=== PATIENT | female | born 1935 | race Caucasian/White ===

== ENCOUNTER 2017-12-23 05:02 | Outpatient (CLI) | payer MEDICARE, OTHER | END 2017-12-23 05:03 | disposition critical access hospital (66) | LOC: EMS 05:02 | PROVIDERS: ATTEND Surgery | DX: R79.81 Abnormal blood-gas level (principal) | CPT/HCPCS: A0425; A0429 ==

== ENCOUNTER 2017-12-23 05:18 | Inpatient (IN) | payer MEDICARE, OTHER ==
--- NOTE | 2017-12-23 05:53 | XRAY Preliminary Report ---
Exam: XR CHEST 1 VIEW X-RAY IMPRESSION: Right lung base pneumonia. Posttreatment chest suggested to ensure clearance. [facility] SITE ID: [id number]
--- NOTE | 2017-12-23 05:55 | XRAY Report ---
EXAM: CHEST RADIOGRAPHY EXAM DATE: 12/23/2017 05:31 AM. CLINICAL HISTORY: Hypoxic. COMPARISON: None. TECHNIQUE: 1 view. FINDINGS: Lungs/Pleura: Small to moderate right lung base opacity. Left lung clear. No gross pneumothorax or la rge effusion. Mediastinum: Borderline heart size. No mediastinal shift. Other: None. IMPRESSION: Right lung base pneumonia. Posttreatment chest suggested to ensure clearance. [facility] Referring Provider Line: [phone] SITE ID: [id number]
[2017-12-23] MEDS ORDERED: levoFLOXacin 250 MG TABLET PO STA (05:58)
--- NOTE | 2017-12-23 06:01 | ED Physician Documentation ---
PD HPI DYSPNEA - Stated complaint Stated Complaint: SOA - Chief complaint Chief Complaint: Resp - History obtained from History obtained from: EMS - History of Present Illness Timing - onset: Today Timing - details: Abrupt onset, Now resolved Associated symptoms: Cough Similar symptoms before: Has not had sx before Recently seen: Not recently seen - Additional information Additional information: Patient is an 82 year old female sent in from the memory care unit for hypoxia. Staff states that the patient had had a cough and been congested. Staff states that when they went to check on her, her oxygenation was 79%. The called ems. When ems arrived they changed the pulse ox and patient was 92-94 percent on room air. Upon initial evaluation in the emergency department patient was awake and alert and denied any complaints. Patient was found to be 96 percent on room air when she was awake. Review of Systems Unable to obtain: Dementia PD PAST MEDICAL HISTORY - Past Medical History Cardiovascular: Hypertension Respiratory: None Neuro: Dementia Endocrine/Autoimmune: Type 2 diabetes, HyPOthyroidism Psych: Depression Other Past Medical History: Demenia - Past Surgical History Past Surgical History: Yes - Present Medications Home Medications: Ambulatory Orders Medication Instructions Recorded Confirmed Levothyroxine [Synthroid] 50 mcg PO DAILY 07/30/13 07/30/13 Provastatin 40 mg PO HS 07/30/13 07/30/13 Cholecalciferol (Vitamin D3) 1 tab PO DAILY 12/23/17 [Vitamin D3] Donepezil HCl [Donepezil HCl] 1 tab PO QPM 12/23/17 LORazepam [Lorazepam] 1 mg PO QPM 12/23/17 QUEtiapine [SEROquel] 12.5 mg PO BID 12/23/17 glipiZIDE [Glipizide] 2.5 mg PO DAILY 12/23/17 - Allergies Allergies/Adverse Reactions: Allergies Allergy/AdvReac Type Severity Reaction Status Date / Time Penicillins Allergy Unknown unknown Verified 12/23/17 05:24 - Social History Does the pt smoke?: No Smoking Status: Never smoker Does the pt drink ETOH?: No Does the pt have substance abuse?: No - POLST Patient has POLST: No PD ED PE NORMAL - Vitals Vital signs reviewed: Yes - General General: No acute distress - HEENT HEENT: Atraumatic, PERRL - Neck Neck: Supple, no meningeal sign - Abdomen Abdomen: Soft, Non distended - Derm Derm: Normal color, Warm and dry - Extremities Extremities: No deformity, Normal ROM s pain, No edema - Neuro Neuro: No motor deficit, Normal speech Eye Opening: Spontaneous PD ED PE EXPANDED - Cardiac Cardiac: Murmur Present - Respiratory Respiratory: Decreased breath sounds, Right lower lobe. No: Distress, Labored, Stridor, Accessory mm use - Neuro Neuro: Confused Results - Vitals Vitals: Vital Signs - 24 hr 12/23/17 12/23/17 05:18 05:29 Temperature 36.9 C Heart Rate 88 88 Respiratory 20 Rate Blood Pressure 127/64 O2 Saturation 96 94 Oxygen O2 Source Room air - Labs Labs: Laboratory Tests 12/23/17 12/23/17 06:00 06:00 WBC 4.5 L RBC 4.06 L Hgb 12.5 Hct 38.3 MCV 94.4 MCH 30.9 MCHC 32.7 RDW 13.3 Plt Count 159 MPV 8.4 Sodium 141 Potassium 3.7 Chloride 110 Carbon Dioxide 22 Anion Gap 9.0 BUN 46 H Creatinine 1.9 H Estimated GFR (MDRD) 25 L Glucose 124 H Calcium 8.8 Total Bilirubin 0.4 AST 26 ALT 19 Alkaline Phosphatase 79 Total Protein 7.0 Albumin 3.7 Globulin 3.3 Albumin/Globulin Ratio 1.1 Lipase < 10 L - Rads (name of study) chest x-ray Radiology: Final report received (right lower lobe pneumonia) PD MEDICAL DECISION MAKING - ED course Complexity details: reviewed old records, reviewed results, re-evaluated patient , considered differential ED course: Patient was seen and examined at bedside. Patient was well appearing and in no distress. patient's vital signs were within normal limits. Patient was not hypoxic on room air. chest x-ray was performed and labs were drawn. patient was found to have a right lower lobe pneumonia and treated with levaquin 750mg PO. Patient had a port score of 114 and required inpatient admission. Case was discussed with the hospitalist and patient was admitted for further evaluation. Departure - Departure Disposition: 66 [facility] DC/Xfer Clinical Impression: Pneumonia Condition: Stable
[2017-12-23 06:09] LABS: BASOPHILS % (AUTO) 0.2 %; HGB - HEMOGLOBIN 12.5 g/dL (12.0-16.0); MEAN CORPUSCULAR HEMOGLOBIN 30.9 pg (27.0-31.0); MEAN CORPUSCULAR HGB CONC 32.7 g/dL (32.0-36.0); MEAN CORPUSCULAR VOLUME 94.4 fL (81.0-99.0); MEAN PLATELET VOLUME 8.4 fL (7.9-10.8); MONOCYTES % (AUTO) 13.5 %; NEUTROPHILS % (AUTO) 81.3 %; PLT - PLATELET COUNT 159 10^3/uL (130-450); RED BLOOD COUNT 4.06 10^6/uL (4.20-5.40); RED CELL DISTRIBUTION WIDTH 13.3 % (12.0-15.0); WHITE BLOOD COUNT 4.5 x10^3/uL (4.8-10.8)
[2017-12-23 06:18] LABS: ABNORMAL LYMPHS % (MANUAL) 0 %
[2017-12-23 06:34] LABS: ALBUMIN 3.7 g/dL (3.2-5.5); ALBUMIN/GLOBULIN RATIO 1.1 (1.0-2.2); ALKALINE PHOSPHATASE 79 IU/L (42-121); ALT ALANINE AMINOTRANSFERASE 19 IU/L (10-60); AST ASPARTATE AMINOTRANSFERASE 26 IU/L (10-42); BILIRUBIN,TOTAL 0.4 mg/dL (0.2-1.0); BUN - BLOOD UREA NITROGEN 46 mg/dL (6-20); CALCIUM 8.8 mg/dL (8.5-10.3); CARBON DIOXIDE - CO2 22 mmol/L (21-32); CHLORIDE 110 mmol/L (101-111); CREATININE 1.9 mg/dL (0.4-1.0); GFR - MDRD 25 (>89); GLUCOSE 124 mg/dL (70-100); SODIUM 141 mmol/L (135-145)
[2017-12-23 06:39] LABS: LIPASE < 10 U/L (22-51)
[2017-12-23] MEDS ORDERED: ONDANSETRON ODT 4 MG TABLET TL PRN (07:17)
[2017-12-23] MEDS ORDERED: PROCHLORPERAZINE 10 MG/2 ML VIAL IVP PRN (07:17)
[2017-12-23] MEDS ORDERED: oxyCODONE 5 MG TABLET PO PRN (07:17)
[2017-12-23] MEDS ORDERED: ACETAMINOPHEN 325 MG TABLET PO PRN (07:17)
[2017-12-23] MEDS ORDERED: SODIUM CHLORIDE FLUSH 0.9% 10 ML SYRINGE IVP PRN (07:17)
[2017-12-23 07:19] LABS: BAND NEUTROPHILS % (MANUAL) 37 %; LYMPHOCYTES # (MANUAL) 0.3 10^3/uL (1.5-3.5); LYMPHOCYTES % (MANUAL) 6 %; METAMYELOCYTES % (MANUAL) 7 %; MONOCYTES # (MANUAL) 0.5 10^3/uL (0.0-1.0); NEUTROPHILS # (MANUAL) 3.4 10^3/uL (1.5-6.6); NEUTROPHILS % (MANUAL) 38 %; PLATELET ESTIMATE, MANUAL NORMAL (130-450,000) (NORMAL); PLATELET MORPHOLOGY 1+ LARGE PLATELETS (NORMAL); RBC MORPHOLOGY (MULTIPLE) NORMAL APPEARANCE (NORMAL)
[2017-12-23 07:20] LABS: DIFFERENTIAL COMMENT MANUAL DIFFERENTIAL
[2017-12-23] MEDS ORDERED: NYSTATIN POWDER 15 GM TOP PRN (11:48)
[2017-12-23] MEDS ORDERED: LORazepam 0.5 MG TABLET PO PRN (11:48)
[2017-12-23] MEDS ORDERED: CALCIUM CARBONATE CHEW 500 MG TABLET PO PRN (11:48)
--- NOTE | 2017-12-23 12:59 | HISTORY & PHYSICAL EXAMINATION ---
Chief Complaint - Chief Complaint Chief Complaint: Cough History of Present Illness - Admitted From Admitted From:: Emergency department - History Obtained From Records Reviewed: Yes History obtained from: Patient's and medical records Exam Limitations: Patient unable to provide reliable history secondary to dementia - History of Present Illness HPI Comment/Other: Patient is an 82-year-old female with a past medical history significant for moderate dementia, knt-zvobpxd-ghovgufbg diabetes, chronic kidney disease stage IV, hypothyroidism, hyperlipidemia, osteoarthritis and history of parotid gland tumor who presents to the emergency department with chief complaint of cough. The patient is a resident of [facility] dementia unit and has been living there for the past 4-1/2 years. Yesterday evening the staff at [facility] noticed that the patient was having bouts of coughing and appeared to be congested. They checked her oxygen saturation and noted it to be 79% on room air. At that point EMS was called to the [place]. The patient herself cannot recall the incident but does admit to coughing and denies any shortness of air. She also denies any fevers or chills but again she is not a reliable historian secondary to her dementia. The patient's states that he last saw the patient 1 day prior and states at that time she seemed to be in her normal state of health and he did not notice her having any coughing or weakness. The patient denies any chest pain, nausea, vomiting, abdominal pain, diarrhea, urinary frequency, urinary urgency, dysuria, joint pains, muscle aches, joint swelling, lower extremity swelling, back pain, neck stiffness, recent unintentional weight loss, changes in her appetite, headache, blurred vision, runny nose, sore throat, or any focal neurologic deficits. On presentation to the emergency department the patient was found to be afebrile , normotensive, slightly tachypneic but saturating well on room air. The patient underwent routine lab work which did reveal a leukopenia with a WBC of 4.5 and bandemia with 37% bands. The patient's creatinine was elevated at 1.9 which is not significantly elevated from her baseline. The patient was an elderly, frail looking female. She underwent a chest x-ray which revealed right lung base pneumonia. Given the patient's age and comorbidities it was felt that the patient would be best off being treated for her pneumonia in the hospital setting. [facility] 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 She is originally from [place], [place]. Her was her high school sweetheart and they have been for 65 years. They had 4 children together her eldest daughter has . The patient and her moved to [facility] in 1987 after living in [place], [place] for many years. The patient is a former smoker she smoked for 32 years she smoked just under a pack a day. She does not drink alcohol and denies any illicit drug use. - POLST Patient has POLST: No POLST Status: Full Code Meds/Allgy - Home Medications Home Medications: Ambulatory Orders Medication Instructions Recorded Confirmed Acetaminophen [Tylenol] 650 mg PO BID 12/23/17 12/23/17 Acetaminophen [Tylenol] 650 mg PO Q6H PRN 12/23/17 12/23/17 Calcium Carbonate [Tums (Calcium 500 mg PO Q4H PRN 12/23/17 12/23/17 Carbonate 500mg)] Cholecalciferol (Vitamin D3) 2,000 unit PO DAILY 12/23/17 12/23/17 [Vitamin D3] Donepezil HCl [Donepezil HCl] 5 mg PO QPM 12/23/17 12/23/17 LORazepam [Lorazepam] 1 mg PO DAILY PRN 12/23/17 12/23/17 LORazepam [Lorazepam] 1 mg PO QPM 12/23/17 12/23/17 Levothyroxine Sodium 50 mcg PO CAMERONUWETHLILIANE@0700 12/23/17 12/23/17 [Levothyroxine Sodium] Levothyroxine Sodium 100 mcg PO MO@0700 12/23/17 12/23/17 [Levothyroxine Sodium] Nystatin [Nystop] 1 applic TOP .BID-TID PRN 12/23/17 12/23/17 Pravastatin [Pravachol] 40 mg PO QPM 12/23/17 12/23/17 QUEtiapine [SEROquel] 12.5 mg PO BID 12/23/17 12/23/17 glipiZIDE [Glipizide] 2.5 mg PO DAILYWM 12/23/17 12/23/17 - Allergies Allergies/Adverse Reactions: Allergies Allergy/AdvReac Type Severity Reaction Status Date / Time Penicillins Allergy Unknown unknown Verified 12/23/17 05:24 Review of Systems - Other Findings Other Findings: A comprehensive review of systems was performed the pertinent positives and negatives are stated above in the HPI and the remainder of the review of systems is negative. Exam - Vital Signs Reviewed Vital Signs: Yes Vital Signs: Vital Signs x48h Temp Pulse Pulse Resp BP BP Pulse Ox 12/23/17 08:50 37.3 C 85 24 130/62 98 12/23/17 08:23 74 22 112/74 95 - Physical Exam General Appearance: positive: No acute distress, Other (Demented, pleasant) Eyes Bilateral: positive: Normal inspection, PERRL, EOMI, No lid inflammation, Conjunctivae nml, No scleral icterus ENT: positive: ENT inspection nml, Pharynx nml, Dry mucous membranes. negative : Purulent nasal drainage, Pharyngeal erythema, Oral lesions Neck: positive: Nml inspection, Thyroid nml, No JVD, Trachea midline. negative : Thyromegaly, Lymphadenopathy (R), Lymphadenopathy (L), Stiff neck, Carotid bruit, Tracheal deviation Respiratory: positive: Chest non-tender, Rhonchi (right base). negative: Wheezes, Rales Cardiovascular: positive: Regular rate & rhythm, No murmur, No gallop Peripheral Pulses: positive: 2+ Abdomen: positive: Non-tender, No organomegaly, Nml bowel sounds, No distention. negative: Guarding, Rebound, Hepatomegaly Back: positive: Nml inspection. negative: CVA tenderness (R), CVA tenderness (L ) Skin: positive: Color nml, No rash, Warm. negative: Diaphoresis, Pallor, Skin rash Extremities: positive: Non-tender, Full ROM, Nml appearance, No pedal edema Neurologic/Psychiatric: positive: CN's nml (2-12), Motor nml, Sensation nml, Disoriented to place, Disoriented to time Conclusion/Plan - Problem List (1) HCAP (healthcare-associated pneumonia) Conclusion/Plan: Patient presented from [facility] with cough and reported oxygen saturation of 79%. On presentation patient's oxygen saturation was within normal limits however she was slightly tachypneic and coughing. Patient's chest x-ray revealed a right lung base pneumonia. The patient had leukopenia with WBC of 4.5 and 37% bandemia. The patient's pneumonia severity index score secondary to her age and other risk factors was 94 at which score it is recommended that the patient be treated with IV antibiotics in the hospital. Patient was admitted to [facility] for treatment of healthcare associated pneumonia given that she is coming from a [place] [facility]. Plan: Start IV cefepime and Levaquin for treatment of healthcare associated pneumonia Supplemental oxygen as needed Monitor WBC and vital signs closely Patient will likely need 2 days of IV antibiotics before discharge back to home place. (2) Diabetes Conclusion/Plan: Patient on glipizide at home Will hold glipizide while hospitalized Place on SS insulin while hospitalized Check HbA1C Blood glucose check ACHS Qualifiers: Diabetes mellitus type: type 2 Diabetes mellitus complication status: with kidney complications Diabetes mellitus complication detail: with chronic kidney disease Diabetes mellitus manager terminal insulin use: without group home use Chronic kidney disease stage: stage 4 (severe) Qualified Code(s): E11.22 - Type 2 diabetes mellitus with diabetic chronic kidney disease; N18.4 - Chronic kidney disease, stage 4 (severe); N18.4 - Chronic kidney disease, stage 4 ( severe); N18.4 - Chronic kidney disease, stage 4 (severe); N18.4 - Chronic kidney disease, stage 4 (severe) (3) Hypothyroidism Conclusion/Plan: Patient has history of hypothyroidism and is on levothyroxine at home we will continue her on her home dose of levothyroxine. We will check a TSH. Stable Qualifiers: Hypothyroidism type: unspecified Qualified Code(s): E03.9 - Hypothyroidism , unspecified (4) Hyperlipidemia Conclusion/Plan: Patient takes Pravachol at home we will continue her on statin while she is hospitalized Stable Qualifiers: Hyperlipidemia type: unspecified Qualified Code(s): E78.5 - Hyperlipidemia , unspecified (5) Dementia Conclusion/Plan: Patient has moderate to severe dementia and resides in a dementia unit at home place. Patient is on donepezil, Seroquel and lorazepam at home and these medications will be continued while she is hospitalized Patient is pleasantly demented however given that she is going to be in a new environment there is high risk for delirium and sundowning. Patient will need frequent orientation and will need to ensure that there is blunting of light during the day and she is not bothered too much at night. 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 Avoid nephrotoxic agents Likely secondary to diabetes (7) Prophylactic use of low molecular weight heparin for venous thromboembolism Conclusion/Plan: Patient will be placed on Lovenox for DVT prophylaxis - Lab Results Lab results reviewed: Yes Fish Bones: 12/23/17 06:00 12/23/17 06:00 Other Lab Results: Laboratory Results WBC 4.5 x10^3/uL (4.8-10.8) L 12/23/17 06:00 RBC 4.06 10^6/uL (4.20-5.40) L 12/23/17 06:00 Hgb 12.5 g/dL (12.0-16.0) 12/23/17 06:00 Hct 38.3 % (37.0-47.0) 12/23/17 06:00 MCV 94.4 fL (81.0-99.0) 12/23/17 06:00 MCH 30.9 pg (27.0-31.0) 12/23/17 06:00 MCHC 32.7 g/dL (32.0-36.0) 12/23/17 06:00 RDW 13.3 % (12.0-15.0) 12/23/17 06:00 Plt Count 159 10^3/uL (130-450) 12/23/17 06:00 MPV 8.4 fL (7.9-10.8) 12/23/17 06:00 Neut # Not Reportable 12/23/17 06:00 Lymph # Not Reportable 12/23/17 06:00 [place] # Not Reportable 12/23/17 06:00 Eos # Not Reportable 12/23/17 06:00 Baso # Not Reportable 12/23/17 06:00 Absolute Nucleated RBC Not Reportable 12/23/17 06:00 Total Counted 100 12/23/17 06:00 Band Neuts % (Manual) 37 % (0-10) H 12/23/17 06:00 Abnorm Lymph % (Manual) 0 % 12/23/17 06:00 Metamyelocytes % 7 % (-0) H 12/23/17 06:00 Nucleated RBC % Not Reportable 12/23/17 06:00 Neutrophils # (Manual) 3.4 10^3/uL (1.5-6.6) 12/23/17 06:00 Lymphocytes # (Manual) 0.3 10^3/uL (1.5-3.5) L 12/23/17 06:00 Monocytes # (Manual) 0.5 10^3/uL (0.0-1.0) 12/23/17 06:00 Eosinophils # (Manual) 0.0 10^3/uL (0-0.7) 12/23/17 06:00 Basophils # (Manual) 0.0 10^3/uL (0-0.1) 12/23/17 06:00 Differential Comment MANUAL DIFFERENTIAL 12/23/17 06:00 Platelet Estimate NORMAL (130-450,000) (NORMAL) 12/23/17 06:00 Platelet Morphology 1+ LARGE PLATELETS (NORMAL) 12/23/17 06:00 RBC Morph Micro Appear NORMAL APPEARANCE (NORMAL) 12/23/17 06:00 Sodium 141 mmol/L (135-145) 12/23/17 06:00 Potassium 3.7 mmol/L (3.5-5.0) 12/23/17 06:00 Chloride 110 mmol/L (101-111) 12/23/17 06:00 Carbon Dioxide 22 mmol/L (21-32) 12/23/17 06:00 Anion Gap 9.0 (6-13) 03/24/18 06:00 BUN 46 mg/dL (6-20) H 12/23/17 06:00 Creatinine 1.9 mg/dL (0.4-1.0) H 12/23/17 06:00 Estimated GFR (MDRD) 25 (>89) L 12/23/17 06:00 Glucose 124 mg/dL (70-100) H 12/23/17 06:00 Calcium 8.8 mg/dL (8.5-10.3) 12/23/17 06:00 Total Bilirubin 0.4 mg/dL (0.2-1.0) 12/23/17 06:00 AST 26 IU/L (10-42) 12/23/17 06:00 ALT 19 IU/L (10-60) 12/23/17 06:00 Alkaline Phosphatase 79 IU/L (42-121) 12/23/17 06:00 Total Protein 7.0 g/dL (6.7-8.2) 12/23/17 06:00 Albumin 3.7 g/dL (3.2-5.5) 12/23/17 06:00 Globulin 3.3 g/dL (2.1-4.2) 12/23/17 06:00 Albumin/Globulin Ratio 1.1 (1.0-2.2) 12/23/17 06:00 Lipase < 10 U/L (22-51) L 12/23/17 06:00 - Diagnostic Imaging Results Diagnostic Imaging Results: positive: Final report reviewed Diagnostic Imaging Results Comments: Chest x-ray Impression: Right lung base pneumonia. Posttreatment chest suggested to ensure clearance. Core Measures - Anticipated LOS I expect patient to be DC'd or transferred within 96 hours.: Yes - DVT/VTE - Prophylaxis VTE/DVT Prophylaxis med ordered at admit?: Yes
[2017-12-23] MEDS: SODIUM CHLORIDE 0.9% 1,000 ML IV SCH ×2 (13:57→23:58)
[2017-12-23] MEDS: CEFEPIME 2 GM in SODIUM CHLORIDE 0.9% MINIBAG 100 ML IV SCH ×2 (13:57→22:54)
[2017-12-23] MEDS: SODIUM CHLORIDE FLUSH 0.9% 10 ML SYRINGE IVP SCH ×2 (13:58→18:35)
[2017-12-23] MEDS: INSULIN ASPART 300 UNIT/3 ML PEN SUBQ SCH ×3 (14:10→21:37)
[2017-12-23] MEDS ORDERED: ZINC OXIDE 20% OINT 28.35 GM TUBE TOP PRN ×2 (19:06→21:30)
[2017-12-23] MEDS: LORazepam 0.5 MG TABLET PO SCH (22:52)
[2017-12-23] MEDS: QUEtiapine 25 MG TABLET PO SCH (22:53)
[2017-12-23] MEDS: DONEPEZIL 5 MG TABLET PO SCH (22:53)
[2017-12-23] MEDS: PRAVASTATIN 40 MG TABLET PO SCH (22:53)
[2017-12-24 05:42] LABS: BASOPHILS % (AUTO) 0.2 %; EOSINOPHILS % (AUTO) 0.4 %; HGB - HEMOGLOBIN 10.9 g/dL (12.0-16.0); LYMPHOCYTES # (AUTO) 0.5 10^3/uL (1.5-3.5); LYMPHOCYTES % (AUTO) 6.9 %; MEAN CORPUSCULAR HEMOGLOBIN 31.1 pg (27.0-31.0); MEAN CORPUSCULAR HGB CONC 32.6 g/dL (32.0-36.0); MEAN CORPUSCULAR VOLUME 95.3 fL (81.0-99.0); MEAN PLATELET VOLUME 8.8 fL (7.9-10.8); MONOCYTES # (AUTO) 0.5 10^3/uL (0.0-1.0); MONOCYTES % (AUTO) 7.2 %; NEUTROPHILS # (AUTO) 5.9 10^3/uL (1.5-6.6); NEUTROPHILS % (AUTO) 85.3 %; PLT - PLATELET COUNT 129 10^3/uL (130-450); RED CELL DISTRIBUTION WIDTH 13.1 % (12.0-15.0); WHITE BLOOD COUNT 6.9 x10^3/uL (4.8-10.8)
[2017-12-24 05:48] LABS: CALCIUM 8.4 mg/dL (8.5-10.3)
[2017-12-24] MEDS: SODIUM CHLORIDE 0.9% 1,000 ML IV SCH ×2 (06:07→19:01)
[2017-12-24] MEDS ORDERED: LEVOTHYROXINE 25 MCG TABLET PO SCH (07:00)
[2017-12-24 07:44] LABS: HB2 TOTAL 11.3 g/dL; HEMOGLOBIN A1C 0.38 g/dL; HEMOGLOBIN A1C % 5.2 % (4.6-6.2)
[2017-12-24] MEDS: INSULIN ASPART 300 UNIT/3 ML PEN SUBQ SCH ×4 (08:19→20:37)
[2017-12-24] MEDS: QUEtiapine 25 MG TABLET PO SCH ×3 (08:21→20:35)
[2017-12-24] MEDS: CHOLECALCIFEROL 1,000 UNIT TABLET PO SCH (08:23)
[2017-12-24] MEDS: POLYETHYLENE GLYCOL 3350 17 GM PACKET PO SCH (08:24)
[2017-12-24] MEDS: CEFEPIME 2 GM in SODIUM CHLORIDE 0.9% MINIBAG 100 ML IV SCH (08:24)
[2017-12-24] MEDS: SODIUM CHLORIDE FLUSH 0.9% 10 ML SYRINGE IVP SCH ×3 (08:27→17:15)
[2017-12-24] MEDS ORDERED: levoFLOXacin 750 MG/150 ML 750 MG/150 ML BAG IV SCH (09:00)
[2017-12-24] MEDS ORDERED: DEXTROSE GEL 37.5 GM TUBE PO ONE (17:01)
--- NOTE | 2017-12-24 19:00 | PROVIDER PROGRESS NOTE ---
Assessment/Plan - Problem List (1) HCAP (healthcare-associated pneumonia) Assessment/Plan: Patient presented from senior care with cough and reported oxygen saturation of 79%. On presentation patient's oxygen saturation was within normal limits however she was slightly tachypneic and coughing. Patient's chest x-ray revealed a right lung base pneumonia. The patient had leukopenia with WBC of 4.5 and 37% bandemia. The patient's pneumonia severity index score secondary to her age and other risk factors was 94 at which score it is recommended that the patient be treated with IV antibiotics in the hospital. Patient was admitted to [facility] for treatment of healthcare associated pneumonia given that she is coming from a senior care. Plan: Continue IV cefepime and Levaquin for treatment of healthcare associated pneumonia Supplemental oxygen as needed WBC improved with no bandemia today Patient will likely need 1 more day of IV antibiotics before discharge back to home place. Patient did have fever overnight and Blood cx was sent (2) Diabetes Conclusion/Plan: Patient on glipizide at home Will hold glipizide while hospitalized Place on SS insulin while hospitalized Check HbA1C Blood glucose check ACHS Stable Qualifiers: Diabetes mellitus type: type 2 Diabetes mellitus complication status: with kidney complications Diabetes mellitus complication detail: with chronic kidney disease Diabetes mellitus termite exterminator helper insulin use: without group home use Chronic kidney disease stage: stage 4 (severe) Qualified Code(s): E11.22 - Type 2 diabetes mellitus with diabetic chronic kidney disease; N18.4 - Chronic kidney disease, stage 4 (severe); N18.4 - Chronic kidney disease, stage 4 ( severe); N18.4 - Chronic kidney disease, stage 4 (severe); N18.4 - Chronic kidney disease, stage 4 (severe) (3) Hypothyroidism Conclusion/Plan: Patient has history of hypothyroidism and is on levothyroxine at home we will continue her on her home dose of levothyroxine. We will check a TSH. Stable Qualifiers: Hypothyroidism type: unspecified Qualified Code(s): E03.9 - Hypothyroidism , unspecified (4) Hyperlipidemia Conclusion/Plan: Patient takes Pravachol at home we will continue her on statin while she is hospitalized Stable Qualifiers: Hyperlipidemia type: unspecified Qualified Code(s): E78.5 - Hyperlipidemia , unspecified (5) Dementia Conclusion/Plan: Patient has moderate to severe dementia and resides in a dementia unit at home place. Patient is on donepezil, Seroquel and lorazepam at home and these medications will be continued while she is hospitalized Patient is pleasantly demented however given that she is going to be in a new environment there is high risk for delirium and sundowning. Patient will need frequent orientation and will need to ensure that there is blunting of light during the day and she is not bothered too much at night. Stable Qualifiers: Dementia type: unspecified type Dementia behavioral disturbance: without behavioral disturbance Qualified Code(s): F03.90 - Unspecified dementia without behavioral disturbance (6) CKD (chronic kidney disease) stage 4, GFR 15-29 ml/min Conclusion/Plan: Flight Dynamicist is slightly increased from baseline at 2.0 Will continue IVFs Will monitor chief green officer Avoid nephrotoxic agents Likely secondary to diabetes (7) Prophylactic use of low molecular weight heparin for venous thromboembolism Conclusion/Plan: Patient will be placed on Lovenox for DVT prophylaxis - Current Meds Current Meds: Current Medications Generic Name Dose Route Start Last Admin Trade Name Freq PRN Reason Stop Dose Admin Acetaminophen 650 mg 12/23/17 07:17 12/23/17 14:33 Tylenol PO 650 mg Q4HR PRN Administration Pain 1 to 4 Cholecalciferol 2,000 unit 12/24/17 09:00 12/24/17 08:23 Vitamin D3 PO 2,000 unit DAILY ARLENE Administration Donepezil HCl 5 mg 12/23/17 21:00 12/23/17 22:53 Aricept PO 5 mg QPM ARLENE Administration Levofloxacin 750 mg in 150 mls @ 100 mls/hr 12/24/17 09:00 12/24/17 10:55 Levaquin 750 Mg/150 Ml IV Infused Q48H ARLENE Infusion Sodium Chloride 1,000 mls @ 125 mls/hr 12/23/17 14:00 12/24/17 16:30 Normal Saline 0.9% IV Infused .Q8H ALRENE Infusion Insulin Aspart 1 - 5 unit 12/23/17 12:00 12/24/17 17:15 Novolog SUBQ Not Given 0800,1200,1700,2100 ARLENE Protocol Levothyroxine Sodium 50 mcg 12/24/17 07:00 12/24/17 06:03 Synthroid PO 50 mcg SUTUWETHFRSA@0700 ARLENE Administration Lorazepam 1 mg 12/23/17 11:48 12/24/17 15:36 Ativan PO 1 mg DAILY PRN Administration Agitation Lorazepam 1 mg 12/23/17 21:00 12/23/17 22:52 Ativan PO 1 mg QPM ARLENE Administration Polyethylene Glycol 17 gm 12/24/17 09:00 12/24/17 08:24 Miralax PO 17 gm DAILY ARLENE Administration Pravastatin Sodium 40 mg 12/23/17 21:00 12/23/17 22:53 Pravachol PO 40 mg QPM ARLENE Administration Quetiapine Fumarate 12.5 mg 12/23/17 21:00 12/24/17 08:26 Seroquel PO 12.5 mg BID ARLENE Administration Sodium Chloride 10 ml 12/23/17 09:00 12/24/17 17:15 Normal Saline Flush 0.9% IVP 10 ml 0100,0900,1700 ARLENE Administration - Lab Result Lab results reviewed: Yes Fish Bone Diagrams: 12/24/17 05:20 12/24/17 05:20 - Diagnostic Imaging Results Diagnostic Imaging Results: Final report reviewed - Additional Planning Condition/Complexity: Improved My Orders: My Active Orders 12/23/17 21:00 Donepezil [Aricept] 5 mg PO QPM LORazepam [Ativan] 1 mg PO QPM Pravastatin [Pravachol] 40 mg PO QPM QUEtiapine [SEROquel] 12.5 mg PO BID 12/24/17 07:00 Levothyroxine [Synthroid] 50 mcg PO SUTUWETHFRSA@0712/24/17 09:00 Cholecalciferol [Vitamin D3] 2,000 unit PO DAILY 12/25/17 07:00 Levothyroxine [Synthroid] 100 mcg PO MO@0700 12/25/17 09:00 Cefepime 2 gm Sodium Chloride 0.9% Minibag [Normal Saline 0.9% Minibag] 100 ml IV DAILY Plan Discussed with:: Patient Time Spent: 31-60 minutes Subjective - Subjective Patient Reports: Resting Comfortably, Cough, Fever (Last night), Shortness of Breath, Other (Confused) Nursing Reports: Confused Objective Vital Signs: Vital Signs - 24 hr 12/24/17 12/24/17 12/24/17 00:00 08:58 15:51 Temperature 36.5 C 36.5 C 37.3 C Heart Rate [ 87 90 92 Brachial] Respiratory 18 18 20 Rate Blood Pressure 135/53 H 102/80 [Left Brachial artery] Blood Pressure 143/84 H [Right Brachial artery] O2 Saturation 92 95 95 12/24/17 16:15 Temperature Heart Rate [ Brachial] Respiratory Rate Blood Pressure 139/71 H [Left Brachial artery] Blood Pressure [Right Brachial artery] O2 Saturation Oxygen O2 Source Room air I&O (Last 24 Hrs): Intake and Output Totals x24h 12/22/17 12/23/17 12/24/17 23:59 23:59 23:59 Intake Total 1949 3148.75 Balance 1949 3148.75 General: Alert, Cooperative, No acute distress HEENT: Atraumatic, PERRLA, EOMI, Other (dry mucus membranes) Neck: Supple, No JVD, No thyromegaly, +2 carotid pulse wo bruit, No LAD Lymphatic: no adenopathy Neuro: Alert, Disoriented, Non Focal, CN 2-12 Grossly Intact Cardiovascular: Regular rate, Normal S1, Normal S2, No murmurs Respiratory: Chest non-tender, No respiratory distress, Rhonchi (right lung) Abdomen: Normal bowel sounds, Soft, No tenderness, No hepatospenomegaly Extremities: No clubbing, No cyanosis, No edema, Normal pulses Skin: No rashes, No breakdown - Results Results: Laboratory Results WBC 6.9 x10^3/uL (4.8-10.8) 12/24/17 05:20 RBC 3.50 10^6/uL (4.20-5.40) L 12/24/17 05:20 Hgb 10.9 g/dL (12.0-16.0) L 12/24/17 05:20 Hct 33.3 % (37.0-47.0) L 12/24/17 05:20 MCV 95.3 fL (81.0-99.0) 12/24/17 05:20 MCH 31.1 pg (27.0-31.0) H 12/24/17 05:20 MCHC 32.6 g/dL (32.0-36.0) 12/24/17 05:20 RDW 13.1 % (12.0-15.0) 12/24/17 05:20 Plt Count 129 10^3/uL (130-450) L 12/24/17 05:20 MPV 8.8 fL (7.9-10.8) 12/24/17 05:20 Neut # 5.9 10^3/uL (1.5-6.6) 12/24/17 05:20 Lymph # 0.5 10^3/uL (1.5-3.5) L 12/24/17 05:20 [place] # 0.5 10^3/uL (0.0-1.0) 12/24/17 05:20 Eos # 0.0 10^3/uL (0.0-0.7) 12/24/17 05:20 Baso # 0.0 10^3/uL (0.0-0.1) 12/24/17 05:20 Absolute Nucleated RBC 0.00 x10^3/uL 12/24/17 05:20 Total Counted 100 12/23/17 06:00 Band Neuts % (Manual) 37 % (0-10) H 12/23/17 06:00 Abnorm Lymph % (Manual) 0 % 12/23/17 06:00 Metamyelocytes % 7 % (-0) H 12/23/17 06:00 Nucleated RBC % 0.0 /100WBC 12/24/17 05:20 Neutrophils # (Manual) 3.4 10^3/uL (1.5-6.6) 12/23/17 06:00 Lymphocytes # (Manual) 0.3 10^3/uL (1.5-3.5) L 12/23/17 06:00 Monocytes # (Manual) 0.5 10^3/uL (0.0-1.0) 12/23/17 06:00 Eosinophils # (Manual) 0.0 10^3/uL (0-0.7) 12/23/17 06:00 Basophils # (Manual) 0.0 10^3/uL (0-0.1) 12/23/17 06:00 Differential Comment MANUAL DIFFERENTIAL 12/23/17 06:00 Platelet Estimate NORMAL (130-450,000) (NORMAL) 12/23/17 06:00 Platelet Morphology 1+ LARGE PLATELETS (NORMAL) 12/23/17 06:00 RBC Morph Micro Appear NORMAL APPEARANCE (NORMAL) 12/23/17 06:00 Sodium 141 mmol/L (135-145) 12/24/17 05:20 Potassium 3.6 mmol/L (3.5-5.0) 12/24/17 05:20 Chloride 113 mmol/L (101-111) H 12/24/17 05:20 Carbon Dioxide 21 mmol/L (21-32) 12/24/17 05:20 Anion Gap 7.0 (6-13) 12/24/17 05:20 BUN 48 mg/dL (6-20) H 12/24/17 05:20 Creatinine 2.0 mg/dL (0.4-1.0) H 12/24/17 05:20 Estimated GFR (MDRD) 24 (>89) L 12/24/17 05:20 Glucose 91 mg/dL (70-100) 12/24/17 05:20 Glycated Hemoglobin 5.2 % (4.6-6.2) 12/24/17 05:20 Estim Average Glucose 103 (70-100) H 12/24/17 05:20 Calcium 8.4 mg/dL (8.5-10.3) L 12/24/17 05:20 Total Bilirubin 0.4 mg/dL (0.2-1.0) 12/23/17 06:00 AST 26 IU/L (10-42) 12/23/17 06:00 ALT 19 IU/L (10-60) 12/23/17 06:00 Alkaline Phosphatase 79 IU/L (42-121) 12/23/17 06:00 Total Protein 7.0 g/dL (6.7-8.2) 12/23/17 06:00 Albumin 3.7 g/dL (3.2-5.5) 12/23/17 06:00 Globulin 3.3 g/dL (2.1-4.2) 12/23/17 06:00 Albumin/Globulin Ratio 1.1 (1.0-2.2) 12/23/17 06:00 Lipase < 10 U/L (22-51) L 12/23/17 06:00 TSH 5.07 uIU/mL (0.34-5.60) 12/24/17 05:20
[2017-12-24] MEDS: LORazepam 0.5 MG TABLET PO SCH (20:35)
[2017-12-24] MEDS: PRAVASTATIN 40 MG TABLET PO SCH (20:35)
[2017-12-24] MEDS: DONEPEZIL 5 MG TABLET PO SCH (20:36)
[2017-12-25] MEDS: SODIUM CHLORIDE 0.9% 1,000 ML IV SCH (02:05)
[2017-12-25] MEDS: SODIUM CHLORIDE FLUSH 0.9% 10 ML SYRINGE IVP SCH (02:06)
[2017-12-25 05:53] LABS: BASOPHILS % (AUTO) 0.3 %; EOSINOPHILS # (AUTO) 0.1 10^3/uL (0.0-0.7); EOSINOPHILS % (AUTO) 1.7 %; HGB - HEMOGLOBIN 10.2 g/dL (12.0-16.0); LYMPHOCYTES # (AUTO) 0.6 10^3/uL (1.5-3.5); LYMPHOCYTES % (AUTO) 9.5 %; MEAN CORPUSCULAR HEMOGLOBIN 31.4 pg (27.0-31.0); MEAN CORPUSCULAR HGB CONC 33.1 g/dL (32.0-36.0); MEAN CORPUSCULAR VOLUME 95.1 fL (81.0-99.0); MEAN PLATELET VOLUME 8.4 fL (7.9-10.8); MONOCYTES # (AUTO) 0.5 10^3/uL (0.0-1.0); MONOCYTES % (AUTO) 8.4 %; NEUTROPHILS # (AUTO) 4.9 10^3/uL (1.5-6.6); NEUTROPHILS % (AUTO) 80.1 %; PLT - PLATELET COUNT 126 10^3/uL (130-450); RED BLOOD COUNT 3.24 10^6/uL (4.20-5.40); RED CELL DISTRIBUTION WIDTH 13.5 % (12.0-15.0); WHITE BLOOD COUNT 6.2 x10^3/uL (4.8-10.8)
[2017-12-25 06:03] LABS: CALCIUM 8.5 mg/dL (8.5-10.3); CREATININE 1.8 mg/dL (0.4-1.0)
[2017-12-25] MEDS ORDERED: LEVOTHYROXINE 100 MCG TABLET PO SCH (07:00)
[2017-12-25 08:01] VITALS: BP 133/55
[2017-12-25] MEDS: INSULIN ASPART 300 UNIT/3 ML PEN SUBQ SCH (08:05)
[2017-12-25] MEDS: QUEtiapine 25 MG TABLET PO SCH (08:22)
[2017-12-25] MEDS: CHOLECALCIFEROL 1,000 UNIT TABLET PO SCH (08:23)
[2017-12-25] MEDS: POLYETHYLENE GLYCOL 3350 17 GM PACKET PO SCH (08:23)
[2017-12-25] MEDS ORDERED: CEFEPIME 2 GM in SODIUM CHLORIDE 0.9% MINIBAG 100 ML IV SCH (09:00)
--- NOTE | 2017-12-25 09:20 | Discharge Plan ---
Discharge Plan Disposition: Home, Self Care Condition: Stable Prescriptions: Ciprofloxacin HCl [Cipro] 500 mg PO BID #10 tablet Diet: Diabetic Activity Restrictions: Activity as Tolerated Shower Restrictions: No Driving Restrictions: No Weight Bearing: Full Weight Additional Instructions or Follow Up instructions: You presented with pneumonia and were treated with IV antibiotics you are now doing better and can be switched to oral antibiotics. You are doing well enough to return back to home place. You will need to take cipro 500 mg twice a day for the next 5 days. I have stopped your glipizide as your HbA1C was only 5.2 and at your age you run the risk of hypoglycemia. No Smoking: If you smoke, Please STOP! Call for help. Follow-up with: Vanessa Lundberg PA-C [Provider Admit Priv/Credential] -
--- NOTE | 2017-12-25 09:30 | DISCHARGE SUMMARY ---
Discharge Summary Admit Date: 12/23/17 Discharge Date: 12/25/17 Discharging Provider: Vargas Kathleen MD Code Status: Do Not Attempt Resuscitation Condition at Discharge: Stable Discharge Disposition: 01 Home, Self Care Discharge Facility [facility]: [facility] - DIAGNOSES Admission Diagnoses: 1. Healthcare associated pneumonia 2. Diabetes 3. Hypothyroidism 4. Hyperlipidemia 5. Dementia 6. Chronic kidney disease stage IV 7. DVT prophylaxis Discharge Diagnoses with Status of Each Condition: 1. Healthcare associated pneumonia: Stable 2. Diabetes: Stable 3. Hypothyroidism: Stable 4. Hyperlipidemia: Stable 5. Dementia: Stable 6. Chronic kidney disease stage IV: Stable 7. DVT prophylaxis: Stable - HPI History of Present Illness: Patient is an 82-year-old female with a past medical history significant for moderate dementia, [id number] diabetes, chronic kidney disease stage IV, hypothyroidism, hyperlipidemia, osteoarthritis and history of parotid gland tumor who presents to the emergency department with chief complaint of cough. The patient is a resident of [facility] dementia unit and has been living there for the past 4-1/2 years. Yesterday evening the staff at [facility] noticed that the patient was having bouts of coughing and appeared to be congested. They checked her oxygen saturation and noted it to be 79% on room air. At that point EMS was called to the [facility]dc. The patient herself cannot recall the incident but does admit to coughing and denies any shortness of air. She also denies any fevers or chills but again she is not a reliable historian secondary to her dementia. The patient's states that he last saw the patient 1 day prior and states at that time she seemed to be in her normal state of health and he did not notice her having any coughing or weakness. The patient denies any chest pain, nausea, vomiting, abdominal pain, diarrhea, urinary frequency, urinary urgency, dysuria, joint pains, muscle aches, joint swelling, lower extremity swelling, back pain, neck stiffness, recent unintentional weight loss, changes in her appetite, headache, blurred vision, runny nose, sore throat, or any focal neurologic deficits. On presentation to the emergency department the patient was found to be afebrile , normotensive, slightly tachypneic but saturating well on room air. The patient underwent routine lab work which did reveal a leukopenia with a WBC of 4.5 and bandemia with 37% bands. The patient's creatinine was elevated at 1.9 which is not significantly elevated from her baseline. The patient was an elderly, frail looking female. She underwent a chest x-ray which revealed right lung base pneumonia. Given the patient's age and comorbidities it was felt that the patient would be best off being treated for her pneumonia in the hospital setting. [facility] was [facility] the [facility] - HOSPITAL COURSE Hospital Course: Patient was admitted for healthcare associated pneumonia and treated with IV cefepime and levaquin for 2 days. Patient had improvement in her white blood cell count and did not have any fevers over the last 24 hours. Patient's cough improved she did not have any hypoxia. The patient appeared well enough to be switched to oral antibiotics and discharge back to home place. The patient was found to have a hemoglobin A1c of 5.2 therefore we stopped her glipizide as we were concerned for possible hypoglycemia. Patient will complete a course of ciprofloxacin 500 mg twice a day for the next 5 days to treat her pneumonia. She was discharged home in stable condition. (1) HCAP (healthcare-associated pneumonia) Assessment/Plan: Patient presented from [facility] with cough and reported oxygen saturation of 79%. On presentation patient's oxygen saturation was within normal limits however she was slightly tachypneic and coughing. Patient's chest x-ray revealed a right lung base pneumonia. The patient had leukopenia with WBC of 4.5 and 37% bandemia. The patient's pneumonia severity index score secondary to her age and other risk factors was 94 at which score it is recommended that the patient be treated with IV antibiotics in the hospital. Patient was admitted to [facility] for treatment of healthcare associated pneumonia given that she is coming from a fdc. Given IV cefepime and Levaquin for treatment of healthcare associated pneumonia x 2 days Improved Blood cx negative Discharged back to home placed on Cipro for 5 days (2) Diabetes Conclusion/Plan: Glipizide stopped as patients HbA1C was 5.2 and BG well controlled on diabetic diet Qualifiers: Diabetes mellitus type: type 2 Diabetes mellitus complication status: with kidney complications Diabetes mellitus complication detail: with chronic kidney disease Diabetes mellitus group home insulin use: without group home use Chronic kidney disease stage: stage 4 (severe) Qualified Code(s): E11.22 - Type 2 diabetes mellitus with diabetic chronic kidney disease; N18.4 - Chronic kidney disease, stage 4 (severe); N18.4 - Chronic kidney disease, stage 4 ( severe); N18.4 - Chronic kidney disease, stage 4 (severe); N18.4 - Chronic kidney disease, stage 4 (severe) (3) Hypothyroidism Conclusion/Plan: TSH 5.07 Stable Continue synthroid Qualifiers: Hypothyroidism type: unspecified Qualified Code(s): E03.9 - Hypothyroidism , unspecified (4) Hyperlipidemia Conclusion/Plan: Patient takes Pravachol at home we will continue her on statin while she is hospitalized Stable Qualifiers: Hyperlipidemia type: unspecified Qualified Code(s): E78.5 - Hyperlipidemia , unspecified (5) Dementia Conclusion/Plan: Stable Qualifiers: Dementia type: unspecified type Dementia behavioral disturbance: without behavioral disturbance Qualified Code(s): F03.90 - Unspecified dementia without behavioral disturbance (6) CKD (chronic kidney disease) stage 4, GFR 15-29 ml/min Conclusion/Plan: 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 at discharge stable (7) Prophylactic use of low molecular weight heparin for venous thromboembolism Conclusion/Plan: Patient placed on Lovenox for DVT prophylaxis - ALLERGIES Allergies/Adverse Reactions: Allergies Allergy/AdvReac Type Severity Reaction Status Date / Time Penicillins Allergy Unknown unknown Verified 12/23/17 05:24 - MEDICATIONS Home Medications: Ambulatory Orders Medication Instructions Recorded Confirmed Acetaminophen [Tylenol] 650 mg PO BID 12/23/17 12/23/17 Acetaminophen [Tylenol] 650 mg PO Q6H PRN 12/23/17 12/23/17 Calcium Carbonate [Tums (Calcium 500 mg PO Q4H PRN 12/23/17 12/23/17 Carbonate 500mg)] Cholecalciferol (Vitamin D3) 2,000 unit PO DAILY 12/23/17 12/23/17 [Vitamin D3] Donepezil HCl 5 mg PO QPM 12/23/17 12/23/17 LORazepam [Lorazepam] 1 mg PO DAILY PRN 12/23/17 12/23/17 LORazepam [Lorazepam] 1 mg PO QPM 12/23/17 12/23/17 Levothyroxine Sodium 50 mcg PO SUTUWETHFRSA@69912/23/17 12/23/17 Levothyroxine Sodium 100 mcg PO MO@00 12/23/17 12/23/17 Nystatin [Nystop] 1 applic TOP .BID-TID PRN 12/23/17 12/23/17 Pravastatin [Pravachol] 40 mg PO QPM 12/23/17 12/23/17 QUEtiapine [SEROquel] 12.5 mg PO BID 12/23/17 12/23/17 Ciprofloxacin HCl [Cipro] 500 mg PO BID #10 tablet 12/25/17 - PHYSICAL EXAM AT DISCHARGE General Appearance: positive: No acute distress, Alert, Other (Demented) Eyes Bilateral: positive: Normal inspection, PERRL, EOMI, No lid inflammation, Conjunctivae nml, No scleral icterus ENT: positive: ENT inspection nml, Pharynx nml, No signs of dehydration. negative: Purulent nasal drainage, Pharyngeal erythema, Oral lesions Neck: positive: Nml inspection, Thyroid nml, No JVD, Trachea midline. negative : Thyromegaly, Lymphadenopathy (R), Lymphadenopathy (L), Stiff neck, Carotid bruit, Tracheal deviation Respiratory: positive: Chest non-tender, No respiratory distress, Breath sounds nml. negative: Wheezes, Rales, Rhonchi Cardiovascular: positive: Regular rate & rhythm, No murmur, No gallop Peripheral Pulses: positive: 2+ Abdomen: positive: Non-tender, No organomegaly, Nml bowel sounds, No distention. negative: Guarding, Rebound, Hepatomegaly Skin: positive: Color nml, No rash, Warm. negative: Cyanosis, Diaphoresis, Pallor Extremities: positive: Non-tender, Full ROM, Nml appearance, No pedal edema Neurologic/Psychiatric: positive: CN's nml (2-12), Motor nml, Sensation nml, Mood/affect nml, Disoriented to place, Disoriented to time - LABS Result Diagrams: 12/25/17 05:32 12/25/17 05:32 Other Lab Results: Laboratory Results WBC 6.2 x10^3/uL (4.8-10.8) 12/25/17 05:32 RBC 3.24 10^6/uL (4.20-5.40) L 12/25/17 05:32 Hgb 10.2 g/dL (12.0-16.0) L 12/25/17 05:32 Hct 30.8 % (37.0-47.0) L 12/25/17 05:32 MCV 95.1 fL (81.0-99.0) 12/25/17 05:32 MCH 31.4 pg (27.0-31.0) H 12/25/17 05:32 MCHC 33.1 g/dL (32.0-36.0) 12/25/17 05:32 RDW 13.5 % (12.0-15.0) 12/25/17 05:32 Plt Count 126 10^3/uL (130-450) L 12/25/17 05:32 MPV 8.4 fL (7.9-10.8) 12/25/17 05:32 Neut # 4.9 10^3/uL (1.5-6.6) 12/25/17 05:32 Lymph # 0.6 10^3/uL (1.5-3.5) L 12/25/17 05:32 [place] # 0.5 10^3/uL (0.0-1.0) 12/25/17 05:32 Eos # 0.1 10^3/uL (0.0-0.7) 12/25/17 05:32 Baso # 0.0 10^3/uL (0.0-0.1) 12/25/17 05:32 Absolute Nucleated RBC 0.00 x10^3/uL 12/25/17 05:32 Total Counted 100 12/23/17 06:00 Band Neuts % (Manual) 37 % (0-10) H 12/23/17 06:00 Abnorm Lymph % (Manual) 0 % 12/23/17 06:00 Metamyelocytes % 7 % (-0) H 12/23/17 06:00 Nucleated RBC % 0.0 /100WBC 12/25/17 05:32 Neutrophils # (Manual) 3.4 10^3/uL (1.5-6.6) 12/23/17 06:00 Lymphocytes # (Manual) 0.3 10^3/uL (1.5-3.5) L 12/23/17 06:00 Monocytes # (Manual) 0.5 10^3/uL (0.0-1.0) 12/23/17 06:00 Eosinophils # (Manual) 0.0 10^3/uL (0-0.7) 12/23/17 06:00 Basophils # (Manual) 0.0 10^3/uL (0-0.1) 12/23/17 06:00 Differential Comment MANUAL DIFFERENTIAL 12/23/17 06:00 Platelet Estimate NORMAL (130-450,000) (NORMAL) 12/23/17 06:00 Platelet Morphology 1+ LARGE PLATELETS (NORMAL) 12/23/17 06:00 RBC Morph Micro Appear NORMAL APPEARANCE (NORMAL) 12/23/17 06:00 Sodium 141 mmol/L (135-145) 12/25/17 05:32 Potassium 3.7 mmol/L (3.5-5.0) 12/25/17 05:32 Chloride 114 mmol/L (101-111) H 12/25/17 05:32 Carbon Dioxide 19 mmol/L (21-32) L 12/25/17 05:32 Anion Gap 8.0 (6-13) 12/25/17 05:32 BUN 42 mg/dL (6-20) H 12/25/17 05:32 Creatinine 1.8 mg/dL (0.4-1.0) H 12/25/17 05:32 Estimated GFR (MDRD) 27 (>89) L 12/25/17 05:32 Glucose 89 mg/dL (70-100) 12/25/17 05:32 POC Whole Bld Glucose 88 mg/dL (70 - 100) 12/25/17 07:58 Glycated Hemoglobin 5.2 % (4.6-6.2) 12/24/17 05:20 Estim Average Glucose 103 (70-100) H 12/24/17 05:20 Calcium 8.5 mg/dL (8.5-10.3) 12/25/17 05:32 Total Bilirubin 0.4 mg/dL (0.2-1.0) 12/23/17 06:00 AST 26 IU/L (10-42) 12/23/17 06:00 ALT 19 IU/L (10-60) 12/23/17 06:00 Alkaline Phosphatase 79 IU/L (42-121) 12/23/17 06:00 Total Protein 7.0 g/dL (6.7-8.2) 12/23/17 06:00 Albumin 3.7 g/dL (3.2-5.5) 12/23/17 06:00 Globulin 3.3 g/dL (2.1-4.2) 12/23/17 06:00 Albumin/Globulin Ratio 1.1 (1.0-2.2) 12/23/17 06:00 Lipase < 10 U/L (22-51) L 12/23/17 06:00 TSH 5.07 uIU/mL (0.34-5.60) 12/24/17 05:20 - DIAGNOSTIC IMAGING Diagnostic Imaging Results: Final report reviewed Diagnostic Imaging Results Comments: Chest x-ray Impression: Right lung base pneumonia. Posttreatment chest suggested to ensure clearance. - FOLLOW UP Follow Up: Patient treated for pneumonia and will continue treatment for next 5 days to complete full treatment. Her glipizide was stopped during the hospitalization. She was discharged back to [facility]. - TIME SPENT Time Spent in Discharge (Minutes): 45
--- NOTE | 2017-12-25 10:27 | Discharge Plan ---
"Discharge Plan for SNF / [facility] - DC Plan and Transition Orders Disposition: Home, Self Care Condition: Stable SNF Transition Orders: Admit to: [facility]] under the care of [Vanessa Good] Discharge Diagnosis: [1. Healthcare associated pneumonia 2. Diabetes 3. Hypothyroidism 4. Hyperlipidemia 5. Dementia 6. Chronic kidney disease stage IV 7. DVT prophylaxis] Medicare Certification: I certify that [facility] care is medically necessary on a continuing basis for any of the conditions for which she/he is receiving care during hospitalization. Notify PCP of admission and forward orders to primary provider for signature. Weight on admission and weekly. Call PCP immediately if weight increases by 10 pounds or if patient develops dyspnea, chest pain/tightness or edema. House Bowel Program: [Yes] If no BM after 2 days, nurse may give M.O.M. 30ml PO PRN and /or ducolax Supp 1 NC and /or TORREY 250mg P.O., and/or senna 1-2 tabs PO. On day 3 nurse may give repeat above order until residents constipation is resolved. Immunizations: Annual Influenza Vaccine: [Yes]. (between Jun 02 and December 30.) Unless allergy or already given Two-Step PPD: [Yes] per [facility] [id number] or appropriate documentation of approved exceptions Treatments & Other Orders: [Complete antibiotic treatment as prescribed] Oxygen Orders: [None] Lab Tests or X-Rays Orders: [None] Orthopedic Orders: [None]. Medications: PLEASE REFER TO THE DISCHARGE MEDICATION LIST. Insulin Orders? [No] Diagnosis: Diabetes Initiate hypo and hyperglycemia protocols for BG <70 and BG >375. May check BG prn for signs/symptoms of dysglycemia. Frequency of BG checks: [Weekly] Basal Insulin: [] Lantus 100 units / ml inject subq as follows: [] [] Other: [] Correction Insulin: - Select the type of insulin below [Choose: Novolog/Humalog]100 units /ml insulin inject subq per orders indicate below [] LOW DOSE [] MODERATE DOSE [] MODERATE/HIGH DOSE [] HIGH DOSE GB UNITS GB UNITS GB UNITS GB UNITS 61-140 0 UNITS 61-140 0 UNITS 61-140 0 UNITS 61-140 0 UNITS 141-175 1 UNITS 141-175 1 UNITS 141-175 2 UNITS 141-175 3 UNITS 176-225 2 UNITS 176-225 3 UNITS 176-225 4 UNITS 176-225 5 UNITS 226-275 3 UNITS 226-275 5 UNITS 226-275 6 UNITS 226-275 7 UNITS 276-325 4 UNITS 276-325 7 UNITS 276-325 8 UNITS 276-325 9 UNITS 326-375 5 UNITS 326-375 9 UNITS 326-375 10 UNITS 326-375 11 UNITS >375 CONTACT MD >375 CONTACT MD >375 CONTACT MD >375 CONTACT MD Custom Dosing: [Choose: None/Novolog/Humalog] 100 units/ml Insulin inject subq as follows: GB Units 61-140 [] Units 141-175 [] Units 176-225 [] Units 226-275 [] Units 276-325 []Units 326-375 [] Units >375 Contact MD Allergies and Adverse Reactions: Allergies Allergy/AdvReac Type Severity Reaction Status Date / Time Penicillins Allergy Unknown unknown Verified 12/23/17 05:24 - Medications New Prescriptions: Ciprofloxacin HCl [Cipro] 500 mg PO BID #10 tablet - Diet Type: No added sugar Texture: Regular Liquids: Thin May have monthly special meal: Yes - Therapies | Activity Activity: Activity as Tolerated Weight Bearing: Full Weight Additional Instructions: You presented with pneumonia and were treated with IV antibiotics you are now doing better and can be switched to oral antibiotics. You are doing well enough to return back to home place. You will need to take cipro 500 mg twice a day for the next 5 days. I have stopped your glipizide as your HbA1C was only 5.2 and at your age you run the risk of hypoglycemia. Follow Up: Follow up with PCP."
== END 2017-12-25 11:30 | disposition home or self-care (01) | DRG 194 ==
LOC: EDUNIT# → ED 05:18 → MS3 07:17
PROVIDERS: ADMIT Specialist; ATTEND Internal Medicine
DX: J18.9 Pneumonia, unspecified organism (principal); N18.4 Chronic kidney disease, stage 4 (severe); I12.9 Hypertensive chronic kidney disease with stage 1 through stage 4 chronic kidney disease, or unspecified chronic kidney disease; E11.9 Type 2 diabetes mellitus without complications; E11.22 Type 2 diabetes mellitus with diabetic chronic kidney disease; E03.9 Hypothyroidism, unspecified; F03.90 Unspecified dementia, unspecified severity, without behavioral disturbance, psychotic disturbance, mood disturbance, and anxiety; Y95 Nosocomial condition; E78.5 Hyperlipidemia, unspecified; M19.90 Unspecified osteoarthritis, unspecified site; Z79.84 Long term (current) use of oral hypoglycemic drugs; Z79.899 Other long term (current) drug therapy; Z86.39 Personal history of other endocrine, nutritional and metabolic disease
CPT/HCPCS: 36415; 71045; 80048; 80053; 83036; 83690; 84443; 85025; 87040; 99284

== ENCOUNTER 2018-10-09 09:05 | Outpatient (CLI) | payer MEDICARE, BC, OTHER ==
--- NOTE | 2018-10-09 13:01 | XRAY Report ---
Reason: DIARRHEA, ACUTE, DIABETES MELLITUS TYPE II Procedure Date: 10/09/2018 Accession Number: [id number] / [id number] Procedure: XR - Abdomen 2 View X-Ray CPT Code: 26750 FULL RESULT: EXAM: ABDOMEN RADIOGRAPHY EXAM DATE: 10/09/2018 09:54 AM. CLINICAL HISTORY: Diarrhea, acute, diabetes mellitus type II. COMPARISON: None. TECHNIQUE: 2 views. FINDINGS: Lung Bases: Unremarkable. Bowel Gas Pattern: Markedly distended loops of small and large bowel up to at least 13 cm. Free Air: No definite free air detected. Other: None. IMPRESSION: Markedly distended bowel loops, differential diagnosis includes sigmoid volvulus, acute ileus and Suman syndrome. No definite extraintestinal gas is detected. Recommendation: Urgent evaluation and CT. CRITICAL RESULT: The findings were discussed with Vanessa Lundberg on 10/09/2018 at approximately 9:30 AM. ANGEL
== END 2018-10-09 09:06 | disposition home or self-care (01) ==
LOC: DI 09:05
PROVIDERS: ATTEND Physician Assistant Medical
DX: K63.89 Other specified diseases of intestine (principal); R19.7 Diarrhea, unspecified; E11.9 Type 2 diabetes mellitus without complications
CPT/HCPCS: 74019